=== PATIENT | male | born 1945 | race Caucasian/White ===

== ENCOUNTER 2018-10-26 06:27 | Day surgery (SDC) | payer MEDICARE ==
[2018-10-24 16:02] VITALS: BMI 31.0
[2018-10-26] MEDS ORDERED: LACTATED RINGERS 1,000 ML IV ONE (06:43)
[2018-10-26 06:46] VITALS: TEMP 97.8
[2018-10-26 06:55] LABS: Glucose,Whole Blood 171 mg/dL (75-99)
[2018-10-26] MEDS ORDERED: LIDOCAINE 1% 20 ML VIAL (10MG/ML) FOR IV START INTRADERMA ONE (06:56)
[2018-10-26] MEDS ORDERED: fentaNYL (PF) 50 MCG/ML 2 ML AMP ONE (07:32)
[2018-10-26] MEDS ORDERED: MIDAZOLAM 2 MG/2 ML VIAL ONE (07:32)
[2018-10-26] MEDS ORDERED: PROPOFOL 10 MG/ML 20 ML VIAL IV ONE (07:32)
--- NOTE | 2018-10-26 08:05 | P.PCN ---
Date of Procedure: 10/26/18 Procedure(s) Performed: BRIEF HISTORY: Patient is a 73-year-old pleasant small, scheduled for an elective colonoscopy as a part of evaluation of change in bowel habits. He is been having irregular bowel movements for the last 6 months duration. He never had a colonoscopy in the past. PROCEDURE PERFORMED: Colonoscopy with biopsy. PREOPERATIVE DIAGNOSIS: Change in bowel habits. IV sedation per Anesthesia. PROCEDURE: After informed consent was obtained, the patient, was brought into the endoscopy unit. IV sedation was administered by Anesthesia under continuous monitoring. Digital rectal examination was normal. Initially the Olympus CF- 160 flexible video colonoscope was then inserted in the rectum, gradually advanced into the cecum without any difficulty. Careful examination was performed as the scope was gradually being withdrawn. Ileocecal valve and the appendiceal orifice were visualized and appeared normal. Prep was excellent. Mucosa of the cecum, ascending colon, transverse colon, appeared normal. In the descending colon there was a 5 mL sessile polyp removed by cold biopsy. In the proximal rectum there was a 2 mm polyp that was removed by cold biopsy. Rest of the descending colon, sigmoid colon, and rectum appeared normal. Retroflexion was performed in the rectum and no lesions were seen. The patient tolerated the procedure well. IMPRESSION: 5 mm descending colon polyp status post removal by cold biopsy 2- 3 mm proximal rectal polyp status post removal by cold biopsy RECOMMENDATIONS: Findings of this examination were discussed with the patient as well as his family. He was advised to follow with the biopsy results. If the biopsy shows adenoma he can have a repeat colonoscopy in 5 years.
[2018-10-26 08:08] VITALS: RESP 16
[2018-10-26 08:26] VITALS: BP 114/75; PULSE 65
== END 2018-10-26 09:04 | disposition home or self-care (01) ==
LOC: ORWHC2ENDO 06:27
PROVIDERS: ATTEND Internal Medicine Gastroenterology
DX: D12.4 Benign neoplasm of descending colon (principal); D12.8 Benign neoplasm of rectum; M06.9 Rheumatoid arthritis, unspecified; I10 Essential (primary) hypertension; E78.5 Hyperlipidemia, unspecified; E11.9 Type 2 diabetes mellitus without complications; K21.9 Gastro-esophageal reflux disease without esophagitis; Z79.4 Long term (current) use of insulin; Z79.899 Other long term (current) drug therapy
CPT/HCPCS: 88305; 45380; J2250; J3010; J2704